=== PATIENT | female | born 1990 | race Caucasian/White ===

== ENCOUNTER 2019-09-08 11:32 | Emergency (ER) | payer BC ==
[~2019-09-08] VITALS: Ht 165.1 cm; Wt 95.0 kg
[~2019-09-08 11:32] MED LIST: FERATE27 MG PO; MOTRIN 600600 MG/TAB PO; MOTRIN 800800 MG/TAB PO; NORCO 325 MG-51 TAB PO; PERCOCET 325 MG1 TA2 PO; PRENATAL VITAMI1 TAB PO; PRENATAL1 TA1 PO
[2019-09-08 12:32] VITALS: BP 111/69
[2019-09-08] MEDS ORDERED: TYLENOL 325MG325 MG PO (12:49)
[2019-09-08 14:18] LABS: COLLECTION METHOD CLEAN CATCH
[2019-09-08 14:26] LABS: PH 7 (5-8); SQUAMOUS EPITHELIAL 0-2 /hpf; URINE APPEARANCE Clear; URINE BACTERIA Rare /hpf; URINE BILIRUBIN Negative (NEGATIVE); URINE BLOOD 2+ (NEGATIVE); URINE COLOR Straw; URINE GLUCOSE Negative (NEGATIVE); URINE KETONE 1+ (NEGATIVE); URINE LEUKOCYTE ESTERASE Negative (NEGATIVE); URINE NITRATE Negative (NEGATIVE); URINE PROTEIN(semi-quant) Negative (NEGATIVE); URINE UROBILINOGEN Negative (NEGATIVE)
[2019-09-08] MEDS ORDERED: MACROBID 1100 MG/CAP PO (15:08)
[2019-09-08] MEDS ORDERED: TAMIFLU 75MG75 MG PO (15:08)
[2019-09-08 15:24] VITALS: PULSE 104; TEMP 98.2
== END 2019-09-08 15:24 | disposition home or self-care (01) ==
LOC: COL.ER 11:32
PROVIDERS: Emergency Medicine
DX: O98.512 Other viral diseases complicating pregnancy, second trimester (principal); J10.1 Influenza due to other identified influenza virus with other respiratory manifestations; Z3A.25 25 weeks gestation of pregnancy

== ENCOUNTER 2019-12-18 05:57 | Inpatient (IN) | payer BC ==
[2019-12-18] VITALS (20 sets, daily range): BP systolic 111–137; BP diastolic 8–87; PULSE 49–79; TEMP 97.9–98.2
[~2019-12-18] VITALS: Ht 165.1 cm; Wt 94.5 kg
[~2019-12-18 05:57] MED LIST changes: +MACROBID 1100 MG/CAP PO; +TAMIFLU 75MG75 MG PO; +TYLENOL 325MG325 MG PO
--- NOTE | 2019-12-18 06:10 | NUR ---
PATIENT HERE TO 210 FOR REPEAT SECTION. PATIENT CHANGED INTO GOWN. ON EFM, VITALS OBTAINED, IV STARTED, CONSENTS SIGNED. ASSESMENT COMPLETE, ZHAO AT BEDSIDE. PATIENT DENIES BLEEDING, LEAKING OF FLUID OR CONTRACTIONS.
[2019-12-18 06:33] LABS: BASO % 0.3 % (0.0-2.0); EOS # 0.1 (0.0-0.7); EOS % 0.9 % (0-4.0); HEMOGLOBIN 12.2 g/dl (12.5-16.0); LYMPH # 1.9 (1.2-3.4); LYMPH % 18.8 % (20.0-51.0); MEAN CELL VOLUME 89 fl (80.0-100.0); MEAN CORPUSCULAR HEMOGLOBIN 30 pg (27.0-31.0); MEAN CORPUSCULAR HGB CONC 34 g/dl (33.0-37.0); MEAN PLATELET VOLUME 11.3 fl (7.4-10.4); MONO # 0.9 (0.1-0.6); MONO % 8.7 % (1.7-9.3); PLATELET COUNT 201 K/mm3 (130-400); RED BLOOD COUNT 4.03 M/mm3 (4.10-5.30); REDCELL DISTRIBUTION WIDTH-CV 13.3 % (11.5-14.5)
--- NOTE | 2019-12-18 14:09 | NUR ---
PATIENT STATE SHE WOULD LIKE TO CONTINUE TO GIVE THE A BOTTLE AND MAY BREASTFEED TOMORORW. PATIENT REFUSED PUMPING
[2019-12-19 05:15] VITALS: BP 122/73; PULSE 51; TEMP 98
[2019-12-19] MEDS ORDERED: MOTRIN 800800 MG/TAB PO (07:20)
[2019-12-19] MEDS ORDERED: PERCOCET 325 MG1 TA2 PO (07:21)
[2019-12-19 07:35] VITALS: BP 118/85; PULSE 62; TEMP 97.9
== END 2019-12-19 14:30 | disposition home or self-care (01) | DRG 788 ==
LOC: OB 05:57 → LDR 12:01 → OB 12-19 14:30
PROVIDERS: ADMIT Obstetrics & Gynecology
PROC: 10D00Z1 Extraction of Products of Conception, Low, Open Approach (ICD-10-PCS; principal; 2019-12-18)
DX: O34.211 Maternal care for low transverse scar from previous cesarean delivery (principal); Z3A.39 39 weeks gestation of pregnancy; Z37.0 Single live birth
CPT/HCPCS: J0690; J1885; J2370; J2405; J2590; J7120